=== PATIENT | male | born 1965 | race Caucasian/White ===

== ENCOUNTER 2016-06-25 12:04 | Emergency (ER) | payer SELFPAY ==
[~2016-06-25] VITALS: Wt 69.5 kg
[~2016-06-25 12:04] MED LIST: BACTDS PO; CEPH-443 PO; HYDR-3498 PO; IBUP800T25 PO
--- NOTE | 2016-06-25 14:16 | ERD ---
ER Documentation Chief Complaint Date/Time DATE: 06/25/16 TIME: 14:12 Chief Complaint RASH X2 DAYS, NO SOB HPI This patient is a 51-year-old male with no significant medical history presenting to the emergency department for rash on his upper extremities and torso which broke out approximately 4 days ago. The patient states he tried some new yogurt drink that his friend gave him and he believes he was allergic to. The rash worsened over the following 2 days however then it began to improve. Currently the patient still has mild rash on his torso and upper extremities but it has improved tremendously. The patient denies having any seasonal, food or drug allergies. The patient denies any shortness of breath, fevers, chills, wheezing or other symptoms at this time. The patient has used Benadryl topical with relief of his symptoms. ROS All systems reviewed and are negative except as per history of present illness. Medications Home Meds Active Scripts Ibuprofen* (Motrin*) 800 Mg Tab, 800 MG PO Q6H Y for PAIN AND OR ELEVATED TEMP, #20 TAB Prov:SAMY PITTS DO 09/29/15 Hydrocodone Bit-Acetaminophen* ([place]*) 5-325 Mg Tab, 1 TAB PO Q6 Y for PAIN, # 10 TAB Prov:SAMY PITTS 09/29/15 Sulfamethoxazole-Trimethoprim* (Bactrim* DS) 800-160 Mg Tab, 1 TAB PO BID for 5 Days, TAB Prov:HONG,SAMY DO 09/29/15 Cephalexin* (Keflex*) 500 Mg Capsule, 500 MG PO QID for 5 Days, CAP Prov:OHNG,[facility] 09/29/15 Allergies Allergies: Coded Allergies: No Known Drug Allergies (Verified Allergy, Unknown, 10/02/15) PMhx/Soc History of Surgery: No Anesthesia Reaction: No Hx Neurological Disorder: No Hx Respiratory Disorders: No Hx Cardiac Disorders: No Hx Psychiatric Problems: No Hx Miscellaneous Medical Probl: No Hx Alcohol Use: No Hx Substance Use: No Hx Tobacco Use: No FmHx Noncontributory for chief complaint Physical Exam Vitals Vital Signs Date Time Temp Pulse Resp B/P Pulse Ox O2 Delivery O2 Flow Rate FiO2 06/25/16 12:16 97.5 65 17 126/86 98 Physical Exam INITIAL VITAL SIGNS: Reviewed by me. GENERAL: Alert and interactive. No acute distress. HEAD: Head is normocephalic and atraumatic. EYES: EOMI. No scleral icterus. No conjunctival injection. ENT: Moist mucosa. NECK: Supple. Full range of motion. RESPIRATORY: Normal respiratory effort. Clear breath sounds bilaterally. No wheezing, rales, or rhonchi. CV: Regular rate and rhythm. Normal S1 S2. No S3 or S4. No murmurs. ABDOMEN: Soft, non-distended, non-tender. No guarding. No rebound. No masses. EXTREMITIES: No deformity. SKIN: Mild macular papular rash noted diffusely to the torso and upper thighs. NEUROLOGIC: Alert and oriented x 4. Speech is normal. Moves all extremities equally. No motor or sensory deficits noted. Procedures/MDM 51-year-old male presenting to the emergency department with rash which began 4 days ago. On physical examination there is very mild maculopapular rash to the torso and upper thighs. There is no wheezing on exam or other signs of respiratory distress. I believe the patient's symptoms are due to an allergy of unknown origin. The patient was counseled to use laundry detergents that are free from dyes and perfumes. The patient will be given a prescription for Medrol Dosepak and Benadryl to be taken as needed. The patient agrees with the plan and his questions and concerns of been addressed. I do not believe any further workup is indicated at this time as the patient has no signs of respiratory distress and he has been improving with topical Benadryl that he is using already. The patient is stable for discharge at this time. Departure Diagnosis: Primary Impression: Rash and other nonspecific skin eruption Condition: Stable Patient Instructions: Hives, Self-Care for Skin Rashes Additional Instructions: Follow-up with your primary care physician within 1 week. Return to the emergency department immediately should you have any new or worsening symptoms, uncontrolled fevers, or other unexplained symptoms. Take all medications as directed. CATRACHITA SUMMERS PA-C Jun 25, 2016 14:16
[2016-06-25] MEDS ORDERED: BEN25 PO (14:17)
[2016-06-25] MEDS ORDERED: MED4DP PO (14:17)
== END 2016-06-25 14:18 | disposition home or self-care (01) ==
LOC: FTE 12:04
DX: R21 Rash and other nonspecific skin eruption (principal)
CPT/HCPCS: 99283

== ENCOUNTER 2018-08-19 16:44 | Emergency (ER) | payer MEDICAID ==
[~2018-08-19] VITALS: Wt 70.9 kg
[~2018-08-19 16:44] MED LIST changes: +BEN25 PO; -IBUP800T25 PO; +IBUP800T48 PO; +MED4DP PO
[2018-08-19] MEDS ORDERED: KETOROLAC 60 MG INJ IM STA (19:31)
--- NOTE | 2018-08-19 19:46 | ERD ---
ER Documentation Chief Complaint Chief Complaint GENITAL PROBLEM HPI 53-year-old male presents with history of testicle and penis pain for the past month. States that he was having intercourse and when his girlfriend got off of him he heard a pop and experienced tremendous amount of pain in the penis. The next day the penis was black and blue. He says since then he is unable to get any erection. He also states he has been having testicular pain and swelling. Has not taken any treatments at has not seen a provider for this condition. Denies fevers, chills, dysuria, hematuria, penile discharge. Denies past medical history. Denies allergies. Denies medications. Denies surgeries. Denies alcohol, tobacco, drug use. Up to date on vaccines. ROS All systems reviewed and are negative except as per history of present illness. Medications Home Meds Active Scripts Hydrocodone/Acetaminophen ([place] 5-325 Tablet) 1 Each Tablet, 1 TAB PO Q6H PRN for PAIN, #10 TAB Prov:CATRACHITA KENT 08/19/18 Methylprednisolone* (Medrol* DOSE PACK) 4 Mg/Dose-Pack Tab.ds.pk, 4 MG PO . DIRECTED, #1 PACKET Prov:CATRACHITA SUMMERS PA-C 06/25/16 Diphenhydramine Hcl* (Benadryl*) 25 Mg Cap, 25 MG PO Q6 PRN for ITCHING/RASH, #15 TAB Prov:CATRACHITA SUMMERS PA-C 06/25/16 Ibuprofen* (Motrin*) 800 Mg Tab, 800 MG PO Q6H PRN for PAIN AND OR ELEVATED TEMP, #20 TAB Prov:SAMY PITTS DO 09/29/15 Hydrocodone Bit-Acetaminophen* ([place]*) 5-325 Mg Tab, 1 TAB PO Q6 PRN for PAIN, #10 TAB Prov:HONGRONNSAMY DO 09/29/15 Sulfamethoxazole-Trimethoprim* (Bactrim* DS) 800-160 Mg Tab, 1 TAB PO BID for 5 Days, TAB Prov:HONGSAMY DO 09/29/15 Cephalexin* (Keflex*) 500 Mg Capsule, 500 MG PO QID for 5 Days, CAP Prov:HONGSAMY DO 09/29/15 Allergies Allergies: Coded Allergies: No Known Drug Allergies (Verified Allergy, Unknown, 06/25/16) PMhx/Soc History of Surgery: Yes (BACK 2005) Anesthesia Reaction: No Hx Neurological Disorder: No Hx Respiratory Disorders: No Hx Cardiac Disorders: No Hx Psychiatric Problems: No Hx Miscellaneous Medical Probl: No Hx Alcohol Use: Yes (OCCASSIONAL) Hx Substance Use: No Hx Tobacco Use: No Smoking Status: Never smoker FmHx Family History: No diabetes, No coronary disease, No other Physical Exam Vitals Vital Signs Date Temp Pulse Resp B/P (MAP) Pulse Ox O2 O2 Flow FiO2 Time Delivery Rate 08/19/18 98.2 75 18 116/76 95 Room Air 21:36 (89) 08/19/18 98.0 99 18 159/72 99 19:12 (101) Physical Exam Const: No acute distress Head: Atraumatic Eyes: Normal Conjunctiva ENT: Normal External Ears, Nose and Mouth. Neck: Full range of motion. No meningismus. Resp: Clear to auscultation bilaterally Cardio: Regular rate and rhythm, no murmurs Abd: Soft, non tender, non distended. Normal bowel sounds : Penis is nonedematous or erythematous with no deformities noted. right testicle is mildly tender to palpation with no transverse lie. There is no scrotal edema or erythema. No inguinal hernias noted. Skin: No petechiae or rashes Back: No midline or flank tenderness Ext: No cyanosis, or edema Neur: Awake and alert Psych: Normal Mood and Affect Results 24 hrs Laboratory Tests Test 08/19/18 21:10 Bedside Urine pH (LAB) 8.5 Bedside Urine Protein (LAB) Negative Bedside Urine Glucose (UA) Negative Bedside Urine Ketones (LAB) Negative Bedside Urine Blood Negative Bedside Urine Nitrite (LAB) Negative Bedside Urine Leukocyte Esterase (L Negative Current Medications Medications Dose Sig/Gary Start Time Status Last (Trade) Ordered Route PRN Stop Time Admin Dose Reason Admin Ketorolac 60 mg ONCE STAT 08/19/18 DC 08/19/18 Tromethamine IM 19:31 20:29 (Toradol) 08/19/18 19:35 Procedures/MDM DIAGNOSTIC IMAGING REPORT Patient: ARTIS RABAGO : 1965 Age: 53 Sex: M MR #: [id number] DOS: 08/19/181930 Ordering MD: CATRACHITA KENT Location: FTE Room/Bed: PROCEDURE: US Scrotum. CLINICAL INDICATION: Pain TECHNIQUE: Multiple sonographic images of the scrotal region were obtained utilizing a linear array transducer with grayscale and color-flow and a Doppler imaging. The images were reviewed on a high-resolution PACS workstation. COMPARISON: No prior studies are available for comparison. FINDINGS: The right testicle is well visualized and has a normal echotexture. No focal areas of abnormal echogenicity are visualized. The right testicle measures measures 4.2 x 2.3 x 2.4 cm. There is normal color-flow. The right epididymis is visualized and unremarkable in appearance. There is normal color-flow. The left testicle is well visualized and has a normal echotexture. No focal areas abnormal echogenicity are visualized. The left testicle measures measures 3.9 x 2.5 x 2.9 cm. There is normal color-flow. The left epididymis is visualized and is unremarkable in appearance. There is normal color-flow. The scrotal wall is unremarkable. No swelling or edema is seen. Bilateral scrotal hydroceles are present. IMPRESSION: Normal testicles. Bilateral scrotal hydroceles. .Robert Bonner MD, MD Date Time Electronically viewed and signed by .Robert Bonner MD, MD on 08/19/2018 20:57 .A/ CC: CATRACHITA KENT [id number] 53-year-old male presents with history of testicle and penis pain for the past month. States that he was having intercourse and when his girlfriend got off of him he heard a pop and she experienced tremendous amount of pain in the penis. The next day the penis was black and blue. He says since then he is unable to get any erection. He also states he has been having testicular pain and swelling. Has not taken any treatments at has not seen a provider for this condition. Denies fevers, chills, dysuria, hematuria, penile discharge. Denies past medical history. Denies allergies. Denies medications. Denies surgeries. Denies alcohol, tobacco, drug use. Up to date on vaccines. Ultrasound showed no signs of torsion or abscess but did show hydrocele which could account for his scrotal pain. They ordered a penile ultrasound to rule out penis fracture but the ultrasound department so we do not perform those here in the ER. Patient advised that hydroceles can require surgical correction and penile fracture as well has his erectile dysfunction needs to be follow-up with urologist. I will suspicion for testicular torsion, infection, abscess, or other emergent condition. Patient discharged with strict ER precautions. Patient advised to follow up with PMD. All questions answered at discharge. Departure Diagnosis: Primary Impression: Pain of male genitalia Additional Impressions: Injury of male external genital organs Encounter type: initial encounter Qualified Codes: S39.94XA - Unspecified injury of external genitals, initial encounter Hydrocele Hydrocele type: unspecified Qualified Codes: N43.3 - Hydrocele, unspecified Condition: Stable DONTECATRACHITA Aug 19, 2018 19:46
[2018-08-19] MEDS ORDERED: HYDR-4011 PO (21:25)
[2018-08-19 21:36] VITALS: BP 116/76; PULSE 75; RESP 18
== END 2018-08-19 21:38 | disposition home or self-care (01) ==
LOC: FTE 16:44
DX: S39.94XA Unspecified injury of external genitals, initial encounter (principal); N43.3 Hydrocele, unspecified; X58.XXXA Exposure to other specified factors, initial encounter; Y92.9 Unspecified place or not applicable
CPT/HCPCS: 76870; 81003; 96372; J1885; Z7502

== ENCOUNTER 2018-09-12 15:14 | Emergency (ER) | payer MEDICAID ==
[~2018-09-12] VITALS: Ht 172.7 cm; Wt 69.6 kg
[~2018-09-12 15:14] MED LIST changes: +HYDR-4011 PO
[2018-09-12 15:26] VITALS: BP 140/81; PULSE 69; RESP 18; Ht 172.7 cm; Wt 69.6 kg
[2018-09-12] MEDS ORDERED: KETOROLAC 60 MG INJ IM STA (16:54)
--- NOTE | 2018-09-13 02:35 | ERD ---
ER Documentation Chief Complaint Chief Complaint bilateral testicular pain seen last mth, needs a speacialist HPI 53-year-old male patient with a past medical history of hydrocele presents to the ED stating that he still has bilateral testicular pain, worse in the right testicle and states that it is gotten more swollen. Reports that it is very difficult for him to get an erection and states that having sex is painful but denies any. Denies having any dysuria, penile discharge, abdominal pain, nausea, vomiting, fever. He has been trying to see a specialist, however states that it is been difficult through [facility]. ROS All systems reviewed and are negative except as per history of present illness. Medications Home Meds Active Scripts Hydrocodone/Acetaminophen ([place] 5-325 Tablet) 1 Each Tablet, 1 TAB PO Q6H PRN for PAIN, #10 TAB Prov:CATRACHITA KENT 08/19/18 Methylprednisolone* (Medrol* DOSE PACK) 4 Mg/Dose-Pack Tab.ds.pk, 4 MG PO . DIRECTED, #1 PACKET Prov:CATRACHITA SUMMERS PA-C 06/25/16 Diphenhydramine Hcl* (Benadryl*) 25 Mg Cap, 25 MG PO Q6 PRN for ITCHING/RASH, #15 TAB Prov:CATRACHITA SUMMERS PA-C 06/25/16 Ibuprofen* (Motrin*) 800 Mg Tab, 800 MG PO Q6H PRN for PAIN AND OR ELEVATED TEMP , #20 TAB Prov:SAMY PITTS DO 09/29/15 Hydrocodone Bit-Acetaminophen* ([place]*) 5-325 Mg Tab, 1 TAB PO Q6 PRN for PAIN, #10 TAB Prov:RONN PITTSRAM DO 09/29/15 Sulfamethoxazole-Trimethoprim* (Bactrim* DS) 800-160 Mg Tab, 1 TAB PO BID for 5 Days, TAB Prov:HONGSAMY DO 09/29/15 Cephalexin* (Keflex*) 500 Mg Capsule, 500 MG PO QID for 5 Days, CAP Prov:HONGRONNSAMY DO 09/29/15 Allergies Allergies: Coded Allergies: No Known Drug Allergies (Verified Allergy, Unknown, 06/25/16) PMhx/Soc History of Surgery: Yes (BACK 2005) Anesthesia Reaction: No Hx Neurological Disorder: No Hx Respiratory Disorders: No Hx Cardiac Disorders: No Hx Psychiatric Problems: No Hx Miscellaneous Medical Probl: No Hx Alcohol Use: Yes (OCCASSIONAL) Hx Substance Use: No Hx Tobacco Use: No FmHx Family History: No diabetes, No coronary disease Physical Exam Vitals Vital Signs Date Temp Pulse Resp B/P (MAP) Pulse Ox O2 O2 Flow FiO2 Time Delivery Rate 09/12/18 98.9 69 18 140/81 99 15:26 (100) Physical Exam Const: [id number], well-nourished. In no acute distress. Head: Atraumatic, normocephalic Eyes: Normal Conjunctiva without injection. No purulent discharge. ENT: Normal external ear, nose. Moist oropharynx without tonsillar exudates. Non-erythematous pharynx. Uvula midline. No drooling. No trismus. Neck: No cervical midline tenderness. Full range of motion. No meningismus. No cervical lymphadenopathy. No JVD. Resp: Clear to auscultation bilaterally. No wheezing, rhonchi, rales, or crackles. No accessory muscle use. No retractions. Cardio: Regular rate and rhythm. No murmurs, rubs or gallops. Abd: Soft, non distended. Normal bowel sounds. No palpable masses. No rebound tenderness. No guarding. Negative McBurney's point. Negative psoas sign. Negative obturator sign. : Circumcised penis. Edematous right testicle with tender to palpation. No phimosis. No paraphimosis. No penile discharge. No warmth to touch. No bleeding noted. No vesicular lesions. Skin: No petechiae or rashes Back: No midline tenderness. No CVA tenderness. Ext: No cyanosis, or edema. Neur: Awake and alert. Normal gait. Normal coordination. Psych: Normal Mood and Affect Results 24 hrs Laboratory Tests Test 09/12/18 17:02 Bedside Urine pH (LAB) 6.0 Bedside Urine Protein (LAB) Negative Bedside Urine Glucose (UA) Negative Bedside Urine Ketones (LAB) Negative Bedside Urine Blood Trace-intact Bedside Urine Nitrite (LAB) Negative Bedside Urine Leukocyte Esterase (L Negative Current Medications Medications Dose Sig/Gary Start Time Status Last (Trade) Ordered Route PRN Stop Time Admin Dose Reason Admin Ketorolac 60 mg ONCE STAT 09/12/18 DC 09/12/18 Tromethamine IM 16:54 09/12/18 17:02 (Toradol) 16:55 Procedures/MDM 53-year-old male patient with no significant past medical history presents to ED complaining of erectile dysfunction and right testicular pain. Patient is afebrile and nontoxic-appearing. Urine, scrotal ultrasound was ordered to further evaluate patient. IMPRESSION: 1. Sonographically normal testes bilaterally. 2. Bilateral hydroceles are identified. 3. There is no significant interval change from the previous study. Urine: No leukocyte esterase, no nitrites, 1+ hematuria. No changes on ultrasound. Patient needs to follow up with urology for further evaluation and treatment. Low suspicion for testicular torsion, gastritis, GERD, peptic ulcer disease, cholecystitis, choledocholithiasis, cholangitis, pancreatitis, appendicitis, bowel obstruction, ileus, volvulus, nephrolithiasis, pyelonephritis, hepatitis, perforated viscus, diverticulitis, abdominal hernia, acute abdomen, mesenteric ischemia or other emergent conditions. Diagnosis: Pain in testicle, erectile dysfunction Follow up with primary care physician in 1-2 days for referral to a urologist. Instructed patient to return to the ED sooner for any worsening symptoms. Patient's questions were answered. Patient understood and agreed with discharge plan. Patient discharged stable. Departure Diagnosis: Primary Impression: Pain in testicle Additional Impression: Erectile dysfunction Erectile dysfunction type: unspecified Qualified Codes: N52.9 - Male erectile dysfunction, unspecified Condition: Stable Patient Instructions: Understanding Erectile Dysfunction, Evaluating Erectile Dysfunction, Erectile Dysfunction: Erectile Aids and Other Treatments, Hydrocele, Type Not Specified Referrals: [facility] YOU HAVE RECEIVED A MEDICAL SCREENING EXAM AND THE RESULTS INDICATE THAT YOU DO NOT HAVE A CONDITION THAT REQUIRES URGENT TREATMENT IN THE EMERGENCY DEPARTMENT. FURTHER EVALUATION AND TREATMENT OF YOUR CONDITION CAN WAIT UNTIL YOU ARE SEEN IN YOUR DOCTORS OFFICE WITHIN THE NEXT 1-2 DAYS. IT IS YOUR RESPONSIBILITY TO MAKE AN APPOINTMENT FOR FOLOW-UP CARE. IF YOU HAVE A PRIMARY DOCTOR --you should call your primary doctor and schedule an appointment IF YOU DO NOT HAVE A PRIMARY DOCTOR YOU CAN CALL OUR PHYSICIAN REFERRAL HOTLINE AT IF YOU CAN NOT AFFORD TO SEE A PHYSICIAN YOU CAN CHOSE FROM THE FOLLOWING [facility] [address] [facility]. [facility] [address] [facility] [address] [facility] [address] [facility] [address] [facility]. [facility]. [address] [facility]. [facility] YOU HAVE RECEIVED A MEDICAL SCREENING EXAM AND THE RESULTS INDICATE THAT YOU DO NOT HAVE A CONDITION THAT REQUIRES URGENT TREATMENT IN THE EMERGENCY DEPARTMENT. FURTHER EVALUATION AND TREATMENT OF YOUR CONDITION CAN WAIT UNTIL YOU ARE SEEN IN YOUR DOCTORS OFFICE WITHIN THE NEXT 1-2 DAYS. IT IS YOUR RESPONSIBILITY TO MAKE AN APPOINTMENT FOR FOLOW-UP CARE. IF YOU HAVE A PRIMARY DOCTOR --you should call your primary doctor and schedule and appointment IF YOU DO NOT HAVE A PRIMARY DOCTOR YOU CAN CALL OUR PHYSICIAN REFERRAL HOTLINE AT . IF YOU CAN NOT AFFORD TO SEE A PHYSICIAN YOU CAN CHOSE FROM THE FOLLOWING [facility] INSTITUTIONS: [facility] [address] [place] [address] [facility] [address] [place] [address] [facility] + [facility] [address] [place] [address] [facility] URGENT CARE/SPECIALTIES Additional Instructions: Call your primary care doctor TOMORROW for an appointment during the next 2-3 days for a referral to see a urologist. See the doctor sooner or return here if your condition worsens before your appointment time. DUNIA HOWELL PA-C Sep 13, 2018 02:35
== END 2018-09-12 19:52 | disposition left against medical advice (07) ==
LOC: FTE 15:14
DX: N50.811 Right testicular pain (principal); N52.9 Male erectile dysfunction, unspecified
CPT/HCPCS: 76870; 81003; J1885; 96372